=== PATIENT | female | born 1945 | race Caucasian/White ===

== ENCOUNTER 2019-09-28 15:09 | Emergency (ER) | payer OTHER ==
[~2019-09-28] VITALS: Ht 170.2 cm; Wt 78.0 kg
[~2019-09-28 15:09] MED LIST: CLEOCIN HCL300 MG PO; IBUPROFEN 800800 M1 PO; PERCOCET 5-3251 EACH PO
[2019-09-28] MEDS ORDERED: LIPITOR 40 MG T40 M1 PO (15:21)
[2019-09-28] MEDS ORDERED: ASA81BEC PO (15:22)
[2019-09-28] MEDS ORDERED: PLAVIX 75 MG TA75 MG PO (15:22)
[2019-09-28] MEDS ORDERED: IPRAT-ALBUT 0.5-3 ML INH (15:22)
[2019-09-28] MEDS ORDERED: CARVEDILOL12.5 MG PO (15:22)
[2019-09-28] MEDS ORDERED: LEVO-T75 MCG PO (15:22)
[2019-09-28] MEDS ORDERED: LISINOPRIL20 MG PO (15:23)
[2019-09-28] MEDS ORDERED: PROTONIX40 M2 PO (15:23)
[2019-09-28] MEDS ORDERED: OCUVITE TABLET1 EAC1 PO (15:23)
[2019-09-28] MEDS ORDERED: TRAMADOL 50 MG50 MG PO (15:23)
[2019-09-28] MEDS ORDERED: LAXATIVE5 M1 PO (15:23)
[2019-09-28] MEDS ORDERED: IRON160 M1 PO (15:24)
[2019-09-28 16:03] LABS: ABSOLUTE BASOPHILS 0.1 thou/uL (0.0-0.2); ABSOLUTE EOSINOPHILS 0.3 thou/uL (0.0-0.7); ABSOLUTE LYMPHOCYTES 2.1 thou/uL (0.8-5.3); ABSOLUTE MONOCYTES 1.1 thou/uL (0.0-1.2); ABSOLUTE NEUTROPHILS 6.8 thou/uL (1.6-8.1); BASOPHILS 0.8 %; EOSINOPHILS 2.6 %; HEMATOCRIT 39.7 % (37.0-47.0); HEMOGLOBIN 13.6 gm/dL (12.0-15.0); LYMPHOCYTES 20.2 %; MCH 29.4 pg (26.0-34.0); MCHC 34.2 g/dL (28.0-37.0); MCV 86.1 fL (80.0-100.0); MONOCYTES 10.6 %; MPV 8.3 fl. (7.2-11.1); NUCLEATED RBCS 0 /100WBC; PLATELET COUNT* 267 thou/uL (150-400); POLYS 65.8 %; RBC 4.61 mil/uL (4.20-5.00); RDW-CV 14.6 % (10.5-14.5); WBC 10.3 thou/uL (4.0-11.0)
[2019-09-28 16:11] LABS: CALCIUM 8.1 mg/dL (8.5-10.1); CREATININE 0.7 mg/dL (0.6-1.3); POTASSIUM 3.3 mmol/L (3.5-5.1)
[2019-09-28 16:22] LABS: ALBUMIN 2.8 g/dL (3.4-5.0); TOTAL BILIRUBIN 0.7 mg/dL (<0.1-1.0); TOTAL PROTEIN 6.7 g/dL (6.4-8.2)
[2019-09-28 17:28] LABS: URINE BILIRUBIN NEGATIVE (Negative); URINE BLOOD NEGATIVE (Negative); URINE CLARITY CLEAR; URINE COLOR YELLOW; URINE GLUCOSE-RANDOM NEGATIVE (Negative); URINE KETONES NEGATIVE (Negative); URINE LEUKOCYTES-REFLEX NEGATIVE (Negative); URINE NITRITE-REFLEX NEGATIVE (Negative); URINE PROTEIN NEGATIVE (Negative); URINE SPECIFIC GRAVITY 1.025 (1.005-1.030)
[2019-09-28] MEDS ORDERED: PREDNISONE 20 M20 MG PO (18:08)
[2019-09-28] MEDS ORDERED: PROMETH-CODEIN 65 ML PO (18:08)
[2019-09-28] MEDS ORDERED: TESSALON PERLE100 MG PO (18:08)
[2019-09-28 18:13] VITALS: BP 139/72
--- NOTE | 2019-09-29 19:18 | EKG ---
[place] [address] ELECTROCARDIOGRAM REPORT Name: JAYLON RICO Room: [facility]#: [id number] Admission: 09/28/19 Attend Phys: Discharge: 09/28/19 Date of : 49 Date of Service: 09/28/19 1628 Report #: [id number] THIS REPORT FOR: //name// [facility] ED Test Date: 2019-09-28 Test Time: 16:28:25 Pat Name: JAYLON RICO Department: Room: Gender: F [employer] Smith: LOLY : 1945 Requested By: Alicia Talley Order Number: [id number] MD: Kenny Combs Measurements Intervals Tracy Rate: 76 P: 60 SC: 125 QRS: -49 QRSD: 122 T: 72 QT: 399 QTc: 449 Interpretive Statements Sinus rhythm Left bundle branch block No previous ECG available for comparison Electronically Signed On 09-29-2019 17:41:20 CDT by Kenny Combs [email or web address] <ELECTRONICALLY SIGNED> By: Kenny Combs MD, [facility] 09/29/19 1741 1628 162 Kenny Combs MD, [facility] /EPI
== END 2019-09-28 18:17 | disposition home or self-care (01) ==
LOC: M.ERS 15:09
PROVIDERS: Physician Assistant
DX: J44.1 Chronic obstructive pulmonary disease with (acute) exacerbation (principal); I10 Essential (primary) hypertension; Z88.1 Allergy status to other antibiotic agents; Z79.82 Long term (current) use of aspirin; Z79.899 Other long term (current) drug therapy